=== PATIENT | female | born 1950 ===

== ENCOUNTER 2021-11-10 14:20 | Emergency (ER) | payer MEDICARE ==
[2021-11-10] MEDS ORDERED: Morphine 2 MG/ML SYRINGE IVPUSH ONE ×2 (17:40→19:00)
[2021-11-10] MEDS ORDERED: Morphine 2 MG/ML SYRINGE ONE ×2 (17:49→21:02)
[2021-11-10] MEDS: Morphine 2 MG/ML SYRINGE ONE ×2 (19:01→19:05)
[2021-11-10] MEDS ORDERED: Tamsulosin 0.4 MG Cap.ER PO ONE (19:14)
[2021-11-11 07:46] VITALS: PULSE 78
[2021-11-11 07:47] VITALS: BP 126/78
== END 2021-11-10 21:50 ==
LOC: LB.ED 14:20 → UNDOADMIN 18:44 → LB.MS 18:44
DX: N21.8 Other lower urinary tract calculus (principal); J18.2 Hypostatic pneumonia, unspecified organism; J91.8 Pleural effusion in other conditions classified elsewhere; R06.02 Shortness of breath; R80.8 Other proteinuria; Z88.5 Allergy status to narcotic agent; Z88.8 Allergy status to other drugs, medicaments and biological substances; Z79.01 Long term (current) use of anticoagulants; Z79.84 Long term (current) use of oral hypoglycemic drugs; Z79.899 Other long term (current) drug therapy; Z72.0 Tobacco use; Z20.822 Contact with and (suspected) exposure to COVID-19
CPT/HCPCS: 36415; 71250; 74176; 80053; 81001; 83880; 84484; 85025; 93005; 96374; 96376; 99285-25; A0425; A0429; J2270; U0002